=== PATIENT | female | born 1980 | race Caucasian/White ===

== ENCOUNTER 2021-09-26 12:42 | Emergency (ER) | payer BC, SELFPAY ==
[2021-09-26 12:59] VITALS: BP 137/84; PULSE 88; RESP 16; TEMP 37; O2SAT 98
--- NOTE | 2021-09-26 13:33 | W.ED.GENAD ---
Discharge Plan Disposition Patient Disposition: HOME Condition: Improving Discharge Details Clinical Impression: Laceration of knee, right Primary Care Provider: Unknown,Unknown ED Provider: Que Fletcher Home Meds and New Rx's Prescriptions: Continued levothyroxine 75 mcg tablet 2 tab PO .QSUNDAY Label Comments: TAKE 1 TABLET BY MOUTH DAILY AND TAKE 2 TABLETS ON MONDAY ON EMPTY STOMACH 30 MIN BEFORE MEAL Liletta 20.1 mcg/24 hrs (6 yrs) 52 mg Intrauterine Device INTRAUTERINE Discharge Instructions Instructions: Laceration (ED) Additional Instructions: Laceration repaired without difficulty. Tetanus status updated today. Keep the area clean and dry, change antibiotic dressing daily. Rest, elevate, cool compresses every 2 hours for 20 minutes. [id number] Tylenol and/or Motrin as directed for discomfort. Please watch for new or worsening symptoms and return to the ER for any concerns. Lastly, the sutures should be removed in the next 10-14 days. I would recommend contacting your primary care provider on Monday to discuss your ER visit and need for outpatient reevaluation Medical Decision Making 41-year-old female presents for a right knee laceration status post mechanical slip and fall. No bony point tenderness. Neuro, vascular, tendon intact. Tetanus status will be updated today. No clear indication for x-ray. Laceration was approximated difficulty, patient tolerated well. The wound was then appropriately cleaned and dressed. Standard discharge and return precautions were provided. Patient understands, is agreeable to this plan, and has no additional questions or concerns upon discharge. This documentation was generated using [employer] dictation system, please disregard any oddities of phrase or misspellings. HPI General Mode of arrival: ambulatory. Date/Time Provider Initiated Documentation: 09/26/21 13:12. Limitations to Documentation: no limitations. Information obtained by: patient. History of Present Illness 41 year old F presents to the emergency department with the chief complaint of R knee lac, described as moderate, with intensity rated at 4. Quality is described as aching, and is localized to the right and lower extremity. Patient reports no radiation. Patient started experiencing this hour(s) (1) and it has been constant. Immobilization improves symptom(s), Movement worsens symptoms . Patient notes no other symptoms.. Patient did receive the following treatments prior to arrival, none Related Data Home Medications Medication Instructions Recorded Confirmed levonorgestrel 20.1 mcg/24 hrs (6 intrauterine 05/29/22 yrs) 52 mg intrauterine device (Liletta) levothyroxine 75 mcg tablet 2 tab PO .QSUNDAY 09/26/21 09/26/21 Allergies Allergy/AdvReac Type Severity Reaction Status Date / Time seasonal Allergy Uncoded 09/26/21 13:02 General Stated Complaint: Laceration BRITT: 4 Review of Systems Constitutional Constitutional: Denies fever(s) and Denies weakness Musculoskeletal Musculoskeletal: Denies deformity, Denies arthralgias, Denies numbness, Reports stiffness and Denies tingling Integumentary/Breasts Skin/Breast: Denies erythema Neurologic Neurologic: Denies numbness, Denies tingling and Denies weakness PFSH All Active Problems (Updated 09/26/21 @ 14:18 by JEREMY Red) Laceration of knee, right (Acute) Social History Smoking/Tobacco Use Status: Never Smoking risk assessment performed?: Yes Drug use: Never Exam Const General: cooperative, healthy appearing, comfortable and no acute distress Orientation: alert and awake [facility] Head: normal to inspection, normocephalic and atraumatic Eyes General: appearance normal, both eyes and all related structures Conjunctivae: conjunctivae normal Neck Neck: normal visual inspection, trachea midline and supple Resp Effort & Inspection: normal respiratory effort and able to speak in complete sentences Cardio Rate: regular rate Rhythm: regular rhythm Skin General skin exam: no rashes or lesions noted Neuro General: patient alert, patient awake, moves all extremities and no focal motor deficits Cognition: normal cognition Speech: speech normal Gait: antalgic Motor: muscle tone normal throughout Sensory Exam: no sensory deficits noted Extrem General: full ROM and capillary refill normal Knee images: 1. 4.5 cm flap laceration. No obvious active bleeding or foreign body. No bony point tenderness, swelling, erythema. Neuro, vascular, tendon intact. Diffuse mild discomfort Psych Appearance: grossly normal Mental Status: mental status grossly normal Course Vital Signs Vital signs: Vital Signs Temperature 37.0 C 09/26/21 12:59 Pulse 88 09/26/21 12:59 Respiratory Rate 16 09/26/21 12:59 Blood Pressure 137/84 09/26/21 12:59 Pulse Oximetry 98 09/26/21 12:59 Temperature 37.0 C 09/26/21 12:59 Temperature Source Oral 09/26/21 12:59 Pulse 88 09/26/21 12:59 Respiratory Rate 16 09/26/21 12:59 Respiratory Effort 09/26/21 12:59 Blood Pressure 137/84 09/26/21 12:59 Blood Pressure Position Sitting 09/26/21 12:59 Pulse Oximetry 98 09/26/21 12:59 Oxygen Delivery Method Room Air 09/26/21 12:59 Oxygen Flow Rate 0 09/26/21 12:59 Pain Level 6 09/26/21 12:59 Procedures Laceration Laceration 1: Site: lower extremity Side (If applicable): right Size (cm): 4.5 Description: flap and clean Depth: simple, single layer Local Anesthetic: Lidocaine 2% Amount of anesthesia used (mL): 6 Pre-repair: wound explored, irrigated extensively and deep structures intact Skin layer closed with: nylon Size (cm): 4-0 Number of sutures: 8 Technique: simple, interrupted
== END 2021-09-26 14:26 | disposition home or self-care (01) ==
PROVIDERS: Emergency Provider Physician Assistant
DX: S81.011A Laceration without foreign body, right knee, initial encounter (principal); W18.39XA Other fall on same level, initial encounter
CPT/HCPCS: 12002; 90471